=== PATIENT | female | born 1960 | race Caucasian/White ===

== ENCOUNTER 2021-01-01 18:22 | Inpatient (IN) ==
[2021-01-01] MEDS ORDERED: Morphine 4 MG/ML VIAL (1 ml) IV ONE (19:10)
[2021-01-01] MEDS ORDERED: NS 0.9% 1000 ml BAG 1,000 ML IV ONE (19:10)
[2021-01-01 19:22] LABS: ABS Basophils 0.1 10^3/ul (0-0.2); ABS Lymphocytes 1.4 10^3/ul (1.0-4.8); ABS Monocytes 0.4 10^3/ul (0-0.8); ABS Neutrophils 7.7 10^3/ul (1.5-7.7); Eosinophil % 0.1 %; Hematocrit 39 % (35-47); Hemoglobin 13.1 g/dL (12.0-16.0); Lymphocyte % 14.3 %; Mean Corpuscular HGB Conc 34 g/dL (31-36); Mean Corpuscular Hemoglobin 31 pg (27-31); Mean Corpuscular Volume 91 fL (80-97); Mean Platelet Volume 7.5 fL (7.4-10.4); Platelet Count 202 10^3/uL (150-450); Red Blood Count 4.26 10^6 /uL (3.70-4.87); Red Cell Distribution Width 14 % (10-15); White Blood Count 9.5 10^3/uL (3.5-10.8)
[2021-01-01 19:39] LABS: INR 0.98 (0.86-1.15)
[2021-01-01 19:40] LABS: ALT 34 U/L (7-52); AST 45 U/L (13-39); Albumin/Globulin Ratio 1.3 (1-3); Alkaline Phosphatase 76 U/L (35-149); Anion Gap 10 mmol/L (2-11); Blood Urea Nitrogen 18 mg/dL (6-24); CO2 Carbon Dioxide 23 mmol/L (22-32); Calcium 8.8 mg/dL (8.6-10.3); Chloride 102 mmol/L (101-111); EGFR African American 71.1 (>60); EGFR Non-African American 58.8 (>60); Globulin 3.1 g/dL (2-4); Glucose 151 mg/dL (70-100); Potassium 4.2 mmol/L (3.5-5.0); Sodium 135 mmol/L (135-145); Total Protein 7.1 g/dL (6.4-8.9)
[2021-01-01 19:45] LABS: Troponin I 2.46 ng/mL (<0.03)
[2021-01-01 20:04] LABS: Lipase 35 U/L (11.0-82.0)
[2021-01-01] MEDS ORDERED: Iodixanol (CONTRAST) 320 MG/ML 100 ML SDV IV ONE (20:30)
[2021-01-01] MEDS ORDERED: Heparin DRIP 25,000 UNITS BAG 25,000 UNITS/500 ML BAG IV SCH (21:15)
[2021-01-01] MEDS ORDERED: fentaNYL 100 mcg/2 ml 50 MCG/ML VIAL IV SLOW PU ONE (21:33)
[2021-01-01] MEDS: Heparin 5000 UNITS/ML 1 mL VIAL IV SCH (22:02)
[2021-01-01 22:20] LABS: Cholesterol 241 mg/dL; HDL Cholesterol 34.3 mg/dL; LDL Cholesterol 156 mg/dL; Triglycerides 255 mg/dL
[2021-01-02 00:08] LABS: Blood Urea Nitrogen 16 mg/dL (6-24); EGFR African American 82.8 (>60); EGFR Non-African American 68.5 (>60)
[2021-01-02 00:17] LABS: Rapid COVID-19 Molecular Undetected (Undetected)
[2021-01-02 00:17] LABS: Troponin I 6.35 ng/mL (<0.03)
[2021-01-02] MEDS ORDERED: Nitro 2% OINT (Nitroglycerin) 1 INCH/PAK TOPICAL ONE (02:42)
[2021-01-02 05:30] LABS: ABS Basophils 0.1 10^3/ul (0-0.2); ABS Lymphocytes 1.3 10^3/ul (1.0-4.8); ABS Monocytes 0.5 10^3/ul (0-0.8); ABS Neutrophils 8.1 10^3/ul (1.5-7.7); Hematocrit 35 % (35-47); Hemoglobin 12.1 g/dL (12.0-16.0); Lymphocyte % 12.6 %; Mean Corpuscular HGB Conc 34 g/dL (31-36); Mean Corpuscular Hemoglobin 31 pg (27-31); Mean Corpuscular Volume 90 fL (80-97); Mean Platelet Volume 7.9 fL (7.4-10.4); Platelet Count 190 10^3/uL (150-450); Red Blood Count 3.93 10^6 /uL (3.70-4.87); Red Cell Distribution Width 14 % (10-15)
[2021-01-02 05:48] LABS: Calcium 8.6 mg/dL (8.6-10.3); EGFR African American 97.2 (>60); EGFR Non-African American 80.3 (>60); Potassium 4.2 mmol/L (3.5-5.0)
[2021-01-02 05:52] LABS: Troponin I 19.05 ng/mL (<0.03)
[2021-01-02] MEDS: Heparin 5000 UNITS/ML 1 mL VIAL IV SCH (06:07)
[2021-01-02] MEDS ORDERED: Heparin 1,000 UNIT/ML 10 ml (10,000 UNITS) CATHLAB/DIALYSIS ONE (06:45)
[2021-01-02] MEDS ORDERED: Midazolam 5 mg/5 ml VIAL 1 mg/ml 5 ml VIAL (5 mg) ONE (06:45)
[2021-01-02] MEDS ORDERED: fentaNYL 100 mcg/2 ml 50 MCG/ML VIAL ONE (06:45)
[2021-01-02] MEDS ORDERED: nitroGLYCERIN DRIP 25,000 MCG/250 ML BTL ONE (06:46)
[2021-01-02] MEDS ORDERED: Heparin 2 UNITS/ML 1000 mls 2,000 ML IV ONE (06:46)
[2021-01-02] MEDS ORDERED: niCARdipine 0.1MG/ML IVPREMIX 20 MG/200 ML BAG IV ONE (06:46)
[2021-01-02] MEDS ORDERED: Iohexol 350 (CONTRAST) 200 ML MDV IV ONE ×2 (06:46)
[2021-01-02] MEDS ORDERED: Lidocaine 1% VIAL 10 MG/ML VIAL ONE (06:46)
[2021-01-02] MEDS ORDERED: Eptifibatide IV (Load dose) 2 MG/ML 10 ml VIAL ONE (07:25)
[2021-01-02] MEDS ORDERED: Atropine 0.1 MG/ML 10 ml SYR (1 mg) ONE (08:17)
[2021-01-02] MEDS ORDERED: Nitro Patch/OINT Remove PATCH TOPICAL ONE (09:00)
[2021-01-02] MEDS: Nicotine PATCH 7 MG/24 HR PATCH TRANSDERM SCH (10:17)
[2021-01-02 15:35] LABS: Troponin I 61.39 ng/mL (<0.03)
[2021-01-03 05:27] LABS: ABS Lymphocytes 1.6 10^3/ul (1.0-4.8); ABS Monocytes 0.5 10^3/ul (0-0.8); ABS Neutrophils 5.1 10^3/ul (1.5-7.7); Eosinophil % 0.4 %; Hematocrit 35 % (35-47); Hemoglobin 12.1 g/dL (12.0-16.0); Lymphocyte % 22.6 %; Mean Corpuscular HGB Conc 34 g/dL (31-36); Mean Corpuscular Hemoglobin 31 pg (27-31); Mean Corpuscular Volume 91 fL (80-97); Mean Platelet Volume 8.1 fL (7.4-10.4); Platelet Count 177 10^3/uL (150-450); Red Blood Count 3.89 10^6 /uL (3.70-4.87); Red Cell Distribution Width 15 % (10-15); White Blood Count 7.3 10^3/uL (3.5-10.8)
[2021-01-03 05:44] LABS: Albumin 3.6 g/dL (3.2-5.2); Albumin/Globulin Ratio 1.2 (1-3); Calcium 8.8 mg/dL (8.6-10.3); EGFR African American 86.3 (>60); EGFR Non-African American 71.4 (>60); Globulin 3.1 g/dL (2-4); Potassium 4.1 mmol/L (3.5-5.0); Total Bilirubin 0.4 mg/dL (0.2-1.0); Total Protein 6.7 g/dL (6.4-8.9)
[2021-01-03] MEDS: Nicotine PATCH 7 MG/24 HR PATCH TRANSDERM SCH (07:53)
[2021-01-03 15:27] VITALS: BP 100/68
== END 2021-01-03 18:25 | disposition home or self-care (01) | DRG 247 ==
LOC: ED 18:22 → SUATTDRO 22:41 → MEDTELE 22:41 → ICU 01-02 08:50 → MEDTELE 01-03 11:34
PROVIDERS: ADMIT Internal Medicine; ATTEND Internal Medicine